=== PATIENT | female | born 1935 | race Caucasian/White ===

== ENCOUNTER 2025-05-16 09:13 | Inpatient (IN) | payer MEDICARE, MEDICAID ==
[~2025-05-16] VITALS: Ht 152.4 cm; Wt 58.5 kg
[2025-05-16] MEDS: SODIUM CHLORIDE 0.9% (SEPSIS BOLUS) IV ONE (09:55)
[2025-05-16] MEDS ORDERED: IPRATROPIUM/ALBUTEROL 0.5-3(2.5)MG/3ML NEB HHN SCH (10:00)
[2025-05-16] MEDS ORDERED: CEFTRIAXONE 1GM/50ML 50 ML IV ONE (10:00)
[2025-05-16 10:05] VITALS: RESP 21
[2025-05-16] MEDS ORDERED: AZITHROMYCIN 500MG/250ML 250 ML IV ONE (10:15)
[2025-05-16] MEDS: CEFTRIAXONE 1GM/50ML 50 ML IV SCH (10:31)
[2025-05-16 10:43] LABS: CREATININE 1.1 mg/dL (0.6-1.0); UREA NITROGEN BLOOD 34 mg/dL (9-23)
[2025-05-16 10:45] LABS: ASPARTATE AMINOTRANSFERASE 31 IU/L (<34); BILIRUBIN DIRECT 0.2 mg/dL (<=3.0); BILIRUBIN TOTAL 0.7 mg/dL (0.1-1.0); PROTEIN TOTAL 7.5 g/dL (6.0-8.3)
[2025-05-16 10:57] LABS: BG BASE EXCESS -8.9 mmol/L (-2.0-3.0); BG CARBOXYHEMOGLOBIN 1.0 % (0.5-1.5); BG DEOXYHEMOGLOBIN 0.7 % (0.0-5.0); BG FLOW(L/min) 2.00 L/min; BG FRACTION INSPIRED OXYGEN 28; BG HCO3 ACT 15.7 mmol/L (21.0-28.0); BG METHEMOGLOBIN 0.3 % (0.5-1.5); BG OXYGEN SATURATION 99.3 % (94.0-98.0); BG OXYHEMOGLOBIN 98.0 % (94.0-98.0); BG PCO2 29.5 mmHg (32.0-45.0); BG PH 7.343 (7.350-7.450); BG PO2 208.5 mmHg (83.0-108.0); BG SAMPLE SITE RIGHT RADIAL; BG TOTAL HEMOGLOBIN 10.2 g/dL (12.0-16.0); BG VENT MODE NASAL CANNULA
[2025-05-16] MEDS: METHYLPREDNISOLONE SOD SUCC 125MG/2ML (ACT-O-VIAL) IV SCH (11:10)
[2025-05-16] MEDS: AZITHROMYCIN 500MG in D5W 250ML IV SCH (11:10)
[2025-05-16] MEDS ORDERED: ONDANSETRON HCL 4MG/2ML INJ IV PRN (11:15)
[2025-05-16] MEDS ORDERED: CLONIDINE 0.1MG TABLET PO PRN (11:15)
[2025-05-16] MEDS ORDERED: IPRATROPIUM/ALBUTEROL 0.5-3(2.5)MG/3ML NEB NEB PRN (11:15)
[2025-05-16 11:45] LABS: TROPONIN I HIGH SENSITIVITY 13 ng/L (3.0-34)
[2025-05-16 11:55] LABS: BASOPHILS % 0.8 % (0.0-2.0); EOSINOPHILS % 0.5 % (0.0-5.0); HEMATOCRIT. 26.2 % (36.0-48.0); HEMOGLOBIN. 8.6 g/dL (12.0-16.0); LYMPHOCYTES % 68.7 % (20.0-50.0); MEAN PLATELET VOLUME 9.5 fl (7.4-10.4); MONOCYTES % 6.4 % (2.0-8.0); NEUTROPHILS % 23.6 % (40.0-76.0); PLATELET 148 x1000/uL (130-400); RED BLOOD CELL COUNT 2.43 mill/uL (4.2-5.4); RED CELL DISTRIBUTION WIDTH 27.3 % (11.6-14.6)
[2025-05-16 12:05] LABS: ADD RBC MORPHOLOGY YES
[2025-05-16] MEDS ORDERED: DEXTROSE 50% WATER 50ML SYRINGE IV PRN (12:30)
[2025-05-16 13:24] LABS: FOLIC ACID (FOLATE) SERUM > 20.00 ng/mL (>5.38)
[2025-05-16 13:25] LABS: VITAMIN B12 SERUM 1038 pg/mL (211-911)
[2025-05-16] MEDS: SODIUM CHLORIDE 0.9% 1,000 ML IV SCH (13:30)
[2025-05-16] MEDS: PANTOPRAZOLE SODIUM 40 MG/VIAL IV SCH (14:49)
[2025-05-16 16:00] VITALS: BP_SYST 122; BP_SYST 158; BP_DIAS 58; BP_DIAS 65; PULSE 102; PULSE 85; RESP 16; RESP 19; TEMP 36.2; TEMP 36.5292; O2SAT 96
[2025-05-16] MEDS ORDERED: ACETAMINOPHEN 325MG TABLET PO PRN (16:15)
[2025-05-16] MEDS: ACETAMINOPHEN 325MG TABLET PO PRN (16:21)
[2025-05-16] MEDS: BLOOD SUGAR DIAGNOSTIC STRIP TEST SCH (16:45)
[2025-05-16 17:04] VITALS: PULSE 93; RESP 18; O2SAT 95
[2025-05-16] MEDS: IPRATROPIUM/ALBUTEROL 0.5-3(2.5)MG/3ML NEB HHN SCH ×2 (17:04→19:53)
[2025-05-16] MEDS: INSULIN LISPRO 100 UNITS/ML SUBCUT SCH (17:15)
[2025-05-16 19:34] LABS: PLATELET ESTIMATE NORMAL
[2025-05-16 19:55] VITALS: PULSE 88; RESP 20; O2SAT 96
[2025-05-16 20:00] VITALS: BP 120/46; PULSE 95; RESP 18; TEMP 36.1; O2SAT 99
[2025-05-16] MEDS: APIXABAN 5 MG TABLET PO SCH (22:43)
[2025-05-16] MEDS ORDERED: IOHEXOL-350 50 ML BOTTLE ONE (23:21)
[2025-05-17] VITALS (11 sets, daily range): BP systolic 114–135; BP diastolic 39–62; PULSE 76–92; RESP 16–20; TEMP 36.1–36.6; O2SAT 95–99
[2025-05-17 08:21] LABS: CREATININE 0.8 mg/dL (0.6-1.0); UREA NITROGEN BLOOD 23 mg/dL (9-23)
[2025-05-17 08:22] LABS: T4 FREE 1.08 ng/dL (0.89-1.76)
[2025-05-17 08:23] LABS: ASPARTATE AMINOTRANSFERASE 21 IU/L (<34); BILIRUBIN DIRECT 0.2 mg/dL (<=3.0)
[2025-05-17 08:24] LABS: BILIRUBIN TOTAL 0.6 mg/dL (0.1-1.0); PROTEIN TOTAL 6.8 g/dL (6.0-8.3)
[2025-05-17 09:41] LABS: HEMATOCRIT. 21.8 % (36.0-48.0); HEMOGLOBIN. 7.4 g/dL (12.0-16.0); MEAN PLATELET VOLUME 9.3 fl (7.4-10.4); PLATELET 121 x1000/uL (130-400); RED BLOOD CELL COUNT 2.05 mill/uL (4.2-5.4); RED CELL DISTRIBUTION WIDTH 26.5 % (11.6-14.6)
[2025-05-17] MEDS ORDERED: CEFTRIAXONE 2,000 MG in DEXTROSE 5% WATER 50 ML IV SCH (10:00)
[2025-05-17] MEDS ORDERED: HYDROCODONE/ACETAMINOPHEN 5/325MG TABLET PO PRN (10:15)
[2025-05-17] MEDS ORDERED: NALOXONE HCL 0.4MG/ML VIAL IV PRN (10:30)
[2025-05-17] MEDS ORDERED: AZITHROMYCIN 250 MG in DEXT 5% WATER 250 ML IV SCH (11:00)
[2025-05-17] MEDS: AZITHROMYCIN 500MG in D5W 250ML IV SCH (12:00)
[2025-05-17 13:20] LABS: INFLUENZA TYPE A Presumptive Negative (Pres. Neg.); INFLUENZA TYPE B Presumptive Negative (Pres. Neg.); RESPIRATORY SYNCYTIAL VIRUS Not Detected (Not Detectd)
[2025-05-17] MEDS: NITROGLYCERIN 0.4MG TABLET SL SL PRN (15:15)
[2025-05-17] MEDS: CEFTRIAXONE 2GM/50ML 50 ML IV SCH (15:15)
[2025-05-17] MEDS: GUAIFENESIN 200MG/10ML SUGAR FREE UDC PO PRN (15:29)
[2025-05-17] MEDS: IPRATROPIUM/ALBUTEROL 0.5-3(2.5)MG/3ML NEB HHN SCH (16:20)
[2025-05-17 16:59] LABS: ATYPICAL LYMPHOCYTES 14; LYMPHOCYTES % MANUAL 60.0 % (20.0-60.0); MONOCYTES % MANUAL 5.0 % (2.0-8.0); NEUTROPHILS % MANUAL 21.0 % (45.0-75.0); PLATELET ESTIMATE NORMAL
[2025-05-17 20:26] LABS: CLARITY URINE CLEAR (CLEAR); COLOR URINE YELLOW (YELLOW); GLUCOSE URINE NEGATIVE (NEGATIVE); KETONES URINE NEGATIVE (NEGATIVE); LEUKOCYTE ESTERASE URINE NEGATIVE (NEGATIVE); NITRITE URINE NEGATIVE (NEGATIVE); OCCULT BLOOD URINE NEGATIVE (NEGATIVE); PH URINE 6.0 (4.5-8.0); PROTEIN URINE TRACE (NEGATIVE); SPECIFIC GRAVITY URINE 1.037 (1.005-1.030); UROBILINOGEN URINE 1.0 E.U./dL (0.2-1.0)
[2025-05-17 20:54] LABS: BACTERIA URINE TRACE; SQUAMOUS EPITHELIAL CELL URINE FEW /lpf (RARE/1+)
[2025-05-17 20:55] LABS: RBC URINE 0-2 /hpf (0-2); WBC URINE 0-2 /hpf (0-2)
[2025-05-17] MEDS: INSULIN GLARGINE 100 UNITS/ML SUBCUT SCH (22:00)
[2025-05-18] VITALS (9 sets, daily range): BP systolic 124–153; BP diastolic 43–83; PULSE 59–102; RESP 17–19; TEMP 36.4–36.8; O2SAT 96–99
[2025-05-18 05:37] LABS: CREATININE 0.8 mg/dL (0.6-1.0); TROPONIN I HIGH SENSITIVITY 6 ng/L (3.0-34); UREA NITROGEN BLOOD 17 mg/dL (9-23)
[2025-05-18 06:18] LABS: BASOPHILS % 1.8 % (0.0-2.0); EOSINOPHILS % 1.5 % (0.0-5.0); HEMATOCRIT. 23.4 % (36.0-48.0); HEMOGLOBIN. 7.7 g/dL (12.0-16.0); LYMPHOCYTES % 65.5 % (20.0-50.0); MEAN PLATELET VOLUME 9.0 fl (7.4-10.4); MONOCYTES % 4.8 % (2.0-8.0); NEUTROPHILS % 26.4 % (40.0-76.0); PLATELET 138 x1000/uL (130-400); RED BLOOD CELL COUNT 2.13 mill/uL (4.2-5.4); RED CELL DISTRIBUTION WIDTH 26.9 % (11.6-14.6)
[2025-05-18] MEDS: DOCUSATE SODIUM 100MG CAPSULE PO PRN (11:56)
[2025-05-18] MEDS: ACETAMINOPHEN 325MG TABLET PO PRN (21:37)
[2025-05-19] VITALS (10 sets, daily range): BP systolic 121–155; BP diastolic 39–71; PULSE 65–105; RESP 15–20; TEMP 36.3–36.6; O2SAT 93–98
[2025-05-19 07:15] LABS: CREATININE 0.8 mg/dL (0.6-1.0); UREA NITROGEN BLOOD 19 mg/dL (9-23)
[2025-05-19 07:20] LABS: PLATELET 155 x1000/uL (130-400); RED BLOOD CELL COUNT 1.99 mill/uL (4.2-5.4); RED CELL DISTRIBUTION WIDTH 26.3 % (11.6-14.6)
[2025-05-19] MEDS: LIDOCAINE 5% PATCH TOP SCH (09:06)
[2025-05-19] MEDS: INSULIN GLARGINE 100 UNITS/ML SUBCUT SCH (09:14)
[2025-05-19] MEDS: APIXABAN 5 MG TABLET PO SCH (13:04)
[2025-05-20] VITALS (9 sets, daily range): BP systolic 103–135; BP diastolic 46–61; PULSE 80–102; RESP 17–24; TEMP 36.4–36.6; O2SAT 95–98
== END 2025-05-20 16:34 | disposition home health service (06) | DRG 189 ==
LOC: ER 09:13 → 5WST 10:32 → EDBEDREQSVC 10:35 → EDBEDREQTM 10:35 → EDBEDREQ 10:35 → EDBEDREQSVC 11:40 → ENRESERV 12:08
PROVIDERS: ADMIT Hospitalist; ATTEND Hospitalist
PROC: 5A09357 Assistance with Respiratory Ventilation, Less than 24 Consecutive Hours, Continuous Positive Airway Pressure (ICD-10-PCS; principal; 2025-05-16)
DX: J96.01 Acute respiratory failure with hypoxia (principal); J15.69 Pneumonia due to other Gram-negative bacteria; J15.9 Unspecified bacterial pneumonia; E87.20 Acidosis, unspecified; D63.8 Anemia in other chronic diseases classified elsewhere; J44.0 Chronic obstructive pulmonary disease with (acute) lower respiratory infection; Z79.01 Long term (current) use of anticoagulants; E11.65 Type 2 diabetes mellitus with hyperglycemia; I10 Essential (primary) hypertension; J44.1 Chronic obstructive pulmonary disease with (acute) exacerbation; Z20.822 Contact with and (suspected) exposure to COVID-19; M47.9 Spondylosis, unspecified; R79.89 Other specified abnormal findings of blood chemistry; M85.80 Other specified disorders of bone density and structure, unspecified site; R07.81 Pleurodynia; Z85.3 Personal history of malignant neoplasm of breast; Z86.711 Personal history of pulmonary embolism; Z90.12 Acquired absence of left breast and nipple; Z92.21 Personal history of antineoplastic chemotherapy; Z99.81 Dependence on supplemental oxygen; Z92.3 Personal history of irradiation
CPT/HCPCS: 36415; 36600; 71045; 71275; 72131; 80048; 80076; 80320; 81003; 82270; 82375; 82607; 82728; 82746; 82805; 82962; 83036; 83540; 83550; 83605; 83880; 84145; 84439; 84443; 84484; 85025; 85027; 85044; 85379; 87420; 87426; 87804; 92610; 93005; 93970; 94070; 94640; 94660; 94664; 94760; 97162; 99291; J0456; J0696; J1815; J2470; J2919; J7030; Q9967; G0480